=== PATIENT | female | born 1960 ===

== ENCOUNTER → 2021-11-14 10:12 | Outpatient (BNVA) | payer MEDICARE, MEDICAID, SELFPAY | PROVIDERS: PCP Internal Medicine; Referring Provider Internal Medicine; Visit Provider Physician Assistant | DX: Z12.11 Encounter for screening for malignant neoplasm of colon (principal) | CPT/HCPCS: 99202 ==

== ENCOUNTER 2021-12-22 10:17 | Outpatient (REF) | payer MEDICARE, MEDICAID, SELFPAY ==
--- NOTE | ~2021-12-22 | MM_ITS ---
EXAMINATION: MM SCREENING DIGITAL BREAST TOMOSYNTHESIS, BILATERAL CLINICAL INFORMATION: Screening. Asymptomatic. The lifetime risk of breast cancer based on the Tyrer-Cuzick Model is 4%. COMPARISON: Mammography: 12/06/2016, 04/30/2012 TECHNIQUE: Digital breast tomosynthesis is performed in both the craniocaudal and mediolateral oblique views along with computer-aided detection (CAD). Synthesized 2D images are generated from the tomosynthesis. FINDINGS: There are scattered areas of fibroglandular density (ACR BI-RADS breast composition Category b). There are no significant masses, abnormal calcifications, or other abnormalities. There is a chronic nodule posterior upper outer right breast with interval increased benign peripheral coarse calcifications consistent with degenerating fibroadenoma. There are no significant changes from prior studies. The axilla and skin contours are unremarkable. MM/MM tomosynthesis screening BI IMPRESSION: No mammographic evidence of malignancy. ASSESSMENT: BI-RADS 2: Benign RECOMMENDATION: Routine annual mammography screening. This patient's information was entered into a reminder system with a target due date for their next mammogram.
[2021-12-22 11:00] LABS: MANUAL DIFF FLAG NO
[2021-12-22 11:32] LABS: Basophils Percent Auto 0.4 % (0-2); Eosinophils Absolute Auto 0.1 X10*3/uL (0.0-0.4); Eosinophils Percent Auto 1.6 % (0-4); Hematocrit 40.7 % (37.0-47.0); Hemoglobin 13.6 g/dl (12.0-16.0); Imm Gran Abs Auto 0.02 X10*3/uL (0.00-0.03); Imm Gran Pct Auto 0.2 % (0.0-0.4); Lymphocytes Absolute Auto 3.7 X10*3/uL (1.2-4.9); Lymphocytes Percent Auto 44.9 % (20-40); Mean Corpuscular HGB Conc 33.4 g/dl (31.0-35.0); Mean Corpuscular Hemoglobin 29.6 pg (27.0-33.0); Mean Corpuscular Volume 88.7 fL (80.0-98.0); Mean Platelet Volume 9.9 fL (9.4-12.3); Monocytes Absolute Auto 0.7 X10*3/uL (0.1-1.2); Monocytes Percent Auto 8.5 % (2-11); Neutrophils Absolute Auto 3.7 x10*3/uL (2.0-8.3); Neutrophils Percent Auto 44.4 % (45-73); Platelet Count 261 X10*3/uL (160-400); Red Blood Count 4.59 X10*6/uL (4.20-5.50); Red Cell Distribution Width 14.4 % (11.0-16.0); White Blood Count 8.3 X10*3/uL (4.8-10.8)
[2021-12-22 12:08] LABS: Alanine Aminotransferase 33 U/L (0-31); Albumin Level 4.9 g/dL (3.5-5.0); Alkaline Phosphatase 73 U/L (39-117); Anion Gap 14 (12-20); Aspartate Amino Transferase 31 U/L (5-31); Bilirubin Total 0.7 mg/dL (0.0-1.0); Blood Urea Nitrogen 13 mg/dL (9-16); Calcium 9.9 mg/dL (8.4-10.2); Carbon Dioxide 24 mmol/L (22-29); Chloride 105 mmol/L (96-108); Cholesterol 260 mg/dL; Estimated Glomerular Filt Rate > 60; Glucose Random 111 mg/dL (60-115); HDL Cholesterol 42 mg/dL; LDL Cholesterol Calculated 177 mg/dl; Sodium 139 mmol/L (135-145); Total Protein 8.3 g/dL (6.5-8.0); Triglycerides 209 mg/dL
[2021-12-22 12:14] LABS: Estimated Average Glucose 117 mg/dL; Hemoglobin A1c % 5.7 %
[2021-12-22 12:31] LABS: Free T4 (Free Thyroxine) 0.96 ng/dL (0.71-1.85); Thyroid Stimulating Hormone 1.77 uIU/mL (0.32-4.0); Vitamin D 25-OH Total 13.5 ng/mL (>30)
[2021-12-24 10:27] LABS: Folate 16.5 ng/mL (> or = 4.0); Vitamin B12 440 pg/mL (200-900)
== END 2021-12-22 10:18 | disposition home or self-care (01) ==
LOC: HO.MAMMO 10:17
PROVIDERS: PCP Internal Medicine; Visit Provider Internal Medicine
DX: Z12.31 Encounter for screening mammogram for malignant neoplasm of breast (principal); E78.00 Pure hypercholesterolemia, unspecified
CPT/HCPCS: 36415; 77063; 77067; 80053; 80061; 82306; 82607; 82746; 83036; 84439; 84443; 85025

== ENCOUNTER 2022-04-08 12:57 | Day surgery (SDC) | payer MEDICARE, MEDICAID, SELFPAY ==
[2022-02-04 11:15] VITALS: BMI 31.6
--- NOTE | 2022-02-07 13:56 | HO.ANESPROP2 ---
HPI - Anesthesia Eval Consult details Narrative: 61yo F for Colonoscopy PMFSH Active Problems Active Problems: All Active Problems (Updated 12/25/21 @ 12:12 by Travis Ramos MD) Osteoarthritis (Acute) Annual physical exam (Acute) Cervical cancer screening (Acute) Breast cancer screening by mammogram (Acute) Hypercholesterolemia (Acute) Colon cancer screening (Acute) Impaired glucose tolerance (Acute) Obesity (BMI 30-39.9) (Acute) Ear pain (Acute) Hypertension (Acute) White coat syndrome with hypertension (Acute) Past Medical History Medical History Failed back syndrome Hypercholesterolemia Hypertension Impaired glucose tolerance Obesity (BMI 30-39.9) Varicose veins of both lower extremities Family History Family History Father Pancreatic cancer Diabetes Mother Diabetes CAD (coronary artery disease) Borderline high blood pressure Surgical History Surgical History History of arthroscopy of left shoulder History of lumbar laminectomy Social History Social History (Updated 12/25/21 @ 11:41 by Travis Ramos MD) Housing: Apartment Alcohol intake: current Patient Tobacco Use Status: Former Tobacco user Tobacco use type: Cigarette Years Smoked: quit 1994 e-Cigarette/Vaping Use: Never Used Second Hand Smoke Exposure: No Current occupational status: unemployed Cognitive needs: No Hearing needs: No Vision needs: No Meds Allergies Allergy/AdvReac Type Severity Reaction Status Date / Time lisinopril Allergy Intermediate cough Verified 12/25/21 11:11 Exam Exam Date and Time: February 07, 2022 1356 Height,Weight and Vital Signs: Height 5 ft 5 in Weight 86.183 kg Pertinent Lab Results Pertinent Lab Results: Laboratory Tests 12/22/21 12/22/21 10:59 10:59 WBC 8.3 Hgb 13.6 Hct 40.7 Plt Count 261 Sodium 139 Potassium 4.0 Chloride 105 Carbon Dioxide 24 BUN 13 Creatinine 0.72 Assessment and Plan Assessment Anesthesia Assessment: Chart Reviewed
[2022-04-02 10:25] VITALS: BMI 30.7
--- NOTE | 2022-04-05 09:10 | P.CONAN_ITS ---
Documented by User: Cherie Gleason NP 04/05/22 09:10 HPI - Anesthesia Eval Consult details Narrative: 61yo F for Colonoscopy PMFSH Active Problems Active Problems: All Active Problems (Updated 12/25/21 @ 12:12 by Travis Ramos MD) Osteoarthritis (Acute) Annual physical exam (Acute) Cervical cancer screening (Acute) Breast cancer screening by mammogram (Acute) Hypercholesterolemia (Acute) Colon cancer screening (Acute) Impaired glucose tolerance (Acute) Obesity (BMI 30-39.9) (Acute) Ear pain (Acute) Hypertension (Acute) White coat syndrome with hypertension (Acute) Past Medical History Medical History Failed back syndrome Hypercholesterolemia Hypertension Impaired glucose tolerance Obesity (BMI 30-39.9) Varicose veins of both lower extremities Family History Family History Father Pancreatic cancer Diabetes Mother Diabetes CAD (coronary artery disease) Borderline high blood pressure Surgical History Surgical History History of arthroscopy of left shoulder History of lumbar laminectomy Social History Social History (Updated 12/25/21 @ 11:41 by Travis Ramos MD) Housing: Apartment Alcohol intake: current Alcohol intake frequency: holidays/special occasions only Patient Tobacco Use Status: Former Tobacco user Tobacco use type: Cigarette Years Smoked: quit 1994 e-Cigarette/Vaping Use: Never Used Second Hand Smoke Exposure: No Use of substances other than those prescribed or required for medical reasons: No Are you DNR?: No Advance Directives: No Advance Directives Information Provided: Yes Advance Directives on File: No Current occupational status: unemployed Cognitive needs: No Hearing needs: No Vision needs: No Meds Allergies Allergy/AdvReac Type Severity Reaction Status Date / Time lisinopril Allergy Intermediate cough Verified 12/25/21 11:11 Exam Exam Date and Time: April 05, 2022 0910 Height,Weight and Vital Signs: Height 5 ft 5 in Weight 83.915 kg Pertinent Lab Results Pertinent Lab Results: Laboratory Tests 12/22/21 12/22/21 10:59 10:59 WBC 8.3 Hgb 13.6 Hct 40.7 Plt Count 261 Sodium 139 Potassium 4.0 Chloride 105 Carbon Dioxide 24 BUN 13 Creatinine 0.72 Assessment and Plan Assessment Anesthesia Assessment: Chart Reviewed Documented by User: Rosmery Bonilla MD 04/08/22 13:56 [facility] Past Medical History Medical History Failed back syndrome Hypercholesterolemia Hypertension Impaired glucose tolerance Obesity (BMI 30-39.9) Varicose veins of both lower extremities Family History Family History Father Pancreatic cancer Diabetes Mother Diabetes CAD (coronary artery disease) Borderline high blood pressure Family history of problems with anesthesia: No Surgical History Surgical History History of arthroscopy of left shoulder History of lumbar laminectomy History of Problems with Anesthesia: No Social History Social History (Updated 12/25/21 @ 11:41 by Travis Ramos MD) Housing: Apartment Alcohol intake: current Alcohol intake frequency: holidays/special occasions only Patient Tobacco Use Status: Former Tobacco user Tobacco use type: Cigarette Years Smoked: quit 1994 e-Cigarette/Vaping Use: Never Used Second Hand Smoke Exposure: No Use of substances other than those prescribed or required for medical reasons: No Are you DNR?: No Advance Directives: No Advance Directives Information Provided: Yes Advance Directives on File: No Current occupational status: unemployed Cognitive needs: No Hearing needs: No Vision needs: No Meds Allergies Allergy/AdvReac Type Severity Reaction Status Date / Time lisinopril Allergy Intermediate cough Verified 12/25/21 11:11 Exam Airway Mallampati Class: II TM Dist: >3cm Neck ROM: Full Partial: Upper Heart: rrr Lungs: cta Assessment and Plan Assessment Anesthesia Assessment: Anesthesia Plan Discussed and Chart Reviewed Final Anesthetic Review Family History of Problems with Anesthesia: No History of Problems with Anesthesia: No NPO: Yes ASA Class: II Final Preanesthetic Review: No Changes in Pt Med Stat, Meds/Allgs Chart Reviewed and Consent Obtained/Reviewed Patient Risk: Intermediate Procedure Risk: Intermediate Anesthetic Plan Anesthetic Plan: MAC: Disposition: Standard PACU
[2022-04-08 13:16] VITALS: BP 169/84; PULSE 94; RESP 16; TEMP 36.6; O2SAT 99
--- NOTE | 2022-04-08 13:52 | MHC.SHP ---
Pre-Procedural Eval Section A Date of Service: 04/08/22 The patient is an INPATIENT: No The History & Physical has been completed within 30 days and I have reviewed it.: No Section B Chief Complaint: screening Details of Present Illness: Colon cancer screening Relevant Family History (Specify if Yes): Yes Relevant Social History: Tobacco Use (Former smoker) Present Medications: see Short Stay Collaborative assessment Medical History: Significant History (Failed back syndrome Hypercholesterolemia Hypertension Impaired glucose tolerance Obesity (BMI 30-39.9) Varicose veins of both lower extremities) History of Previous Operations: Relevant previous surgery/procedure and date(s) (History of arthroscopy of left shoulder History of lumbar laminectomy) Allergies: Allergies Allergy/AdvReac Type Severity Reaction Status Date / Time lisinopril Allergy Intermediate cough Verified 12/25/21 11:11 Review of Systems Sugical H&P ROS: Negative: Constitution, Cardiovascular, Respiratory and Gastrointestinal Exam Surgical H&P Exam: Normal: Heart, Normal: Lungs, Normal: Extremities and Normal: Abdomen Plan Diagnosis/Plan: Unchanged I have reviewed the history and physical and performed a pertinent physical examination on my patient. No changes have occurred unless specified.
--- NOTE | 2022-04-08 13:59 | P.OP_ITS ---
Operative Note Operative Note Date of Service: 04/08/22 Narrative: Pre-op diagnosis: Colon cancer screening Post-op diagnosis:?other (Colon polyp, diverticulosis, hemorrhoids, prominent ileocecal valve) Procedure: COLONOSCOPY TILL CECUM WITH BIOPSIES Consent: Indications for the procedure and potential complications of bleeding, perforation, reaction to medications and missed diagnosis were discussed with the patient and informed consent was obtained. Instrument: Olympus PCF H 190 L variable stiffness pediatric colonoscope Monitoring: Vital signs and clinical assessment, intermittent blood pressure monitoring, continuous EKG monitoring, Pulse oximetry and Carbon Dioxide monitoring were done throughout the procedure. Colon withdrawl time was 19 minutes. Procedure: The patient was placed in the left lateral decubitis position and pre-procedure medications were administered. After a digital rectal examination of the ano-rectum, the video colonoscope was inserted into the rectum and advanced through the colon to the cecum. The colonoscope was slowly withdrawn in a retrograde panoramic fashion and the colon mucosa was carefully examined including a retroflexed view of the rectum. Findings and interventions are described below. Procedure Difficulty: Without difficulty Findings: Terminal Ileum: Not evaluated Cecum:? Prominent ICV? with ? adenomatous tissue along the proximal lip - biopsied Ascending Colon:? Normal Transverse Colon:? Normal Descending Colon:? Moderate diverticulosis Sigmoid Colon:? A 3-4 mm diminutive appearing polyp removed with a cold bx. Moderate diverticulosis Rectum:? Prominent rectal veins Ano-rectum:? Moderate internal hemorrhoids Colon preparation:? Good? Impression and Post Procedure Diagnosis: Colonoscopy Findings: One diminutive appearing polyp removed Prominent ICV? with ? adenomatous tissue along the proximal lip - biopsied Moderate diverticulosis seen in the left colon Moderate hemorrhoids on retroflexed exam. Plan: Await pathology results Patient has an appointment on 04/22/22 in the GI Clinic with JUAN MANUEL Raymond. Repeat Colonoscopy interval based on path results - if ICV biopsy reveals adenomatous tissue, repeat colonoscopy in [address] Albright for hybrid APC. and 10 years if polyps are hyperplastic. Above findings were reviewed with the patient and colon polyps and diverticulosis handouts were given in the discharge area Surgeon: Jaylin Casper MD Anesthesia:?MAC (Dr Andino) Was an Gatekeeper used for this Procedure?:?Yes Gatekeeper:?Earlene Lazar Estimated blood loss (mL):?0 Pathology:?other (A. ileocecal valve bxs, R/O adenoma? B. sigmoid polyp) Condition:?stable Disposition:?PACU
[2022-04-08 14:37] VITALS: BP 115/72; PULSE 73; RESP 16; TEMP 36.1; O2SAT 97
[2022-04-08 14:52] VITALS: BP 134/76; PULSE 69; RESP 18; TEMP 36.1; O2SAT 98
== END 2022-04-08 15:20 | disposition home or self-care (01) ==
PROVIDERS: PCP Internal Medicine; Visit Provider Internal Medicine Gastroenterology
PROC: 0DJD8ZZ Inspection of Lower Intestinal Tract, Via Natural or Artificial Opening Endoscopic (ICD-10-PCS; CPT 45378; principal; 2022-04-08 12:40)
DX: Z12.11 Encounter for screening for malignant neoplasm of colon (principal); K63.5 Polyp of colon; K57.30 Diverticulosis of large intestine without perforation or abscess without bleeding; K64.8 Other hemorrhoids; K63.89 Other specified diseases of intestine; I10 Essential (primary) hypertension; I83.93 Asymptomatic varicose veins of bilateral lower extremities; E78.00 Pure hypercholesterolemia, unspecified; M96.1 Postlaminectomy syndrome, not elsewhere classified; R73.02 Impaired glucose tolerance (oral); E66.9 Obesity, unspecified; Z68.31 Body mass index [BMI] 31.0-31.9, adult; Z79.899 Other long term (current) drug therapy; Z88.8 Allergy status to other drugs, medicaments and biological substances; Z87.891 Personal history of nicotine dependence
CPT/HCPCS: 45380; 88305

== ENCOUNTER → 2022-04-22 14:20 | Outpatient (BNVA) | payer MEDICARE, MEDICAID, SELFPAY | PROVIDERS: PCP Internal Medicine; Visit Provider Physician Assistant | DX: K63.5 Polyp of colon (principal) | CPT/HCPCS: Q3014 ==

== ENCOUNTER 2023-08-08 16:13 | Outpatient (AMB) | payer MEDICARE, MEDICAID, SELFPAY ==
[2023-08-08 16:16] VITALS: BP 142/82; PULSE 81; O2SAT 98; BMI 31.9
--- NOTE | 2023-08-08 16:16 | AM.OFFVISMDC ---
Intake Vital Signs 08/08/23 16:16 Height 5 ft 5 in Weight 192 lb BMI 31.9 BP 142/82 H Blood Pressure Location Lt brachial Position Sitting Pulse 81 Pulse Source Pulse Oximeter Pulse Oximetry (%) 98 Oxygen Delivery Method Room Air Intake Visit Reasons: AWV Senior Sales Assistant Required: No Octave Board Assembler: Octave Board Assembler Present Accompanied by: Daughter Allergies lisinopril Allergy (Intermediate, Verified 08/08/23 16:19) cough Medication List - Last Reconciled 08/08/23 by Travis Ramos MD amlodipine 5 mg PO DAILY 90 days blood pressure monitor As directed diclofenac sodium 1% (Voltaren Arthritis Pain) 4 grams topical QID HPI AWV HPI Details 63-year-old obese female with hypertension hypercholesterolemia impaired glucose tolerance last seen last year for physical in December 2021. Patient is here for physical exam. Mammogram is due colonoscopy is up-to-date. Review of the notes received from gynecology having myoma this was in June 2016 patient also seen the a Orthopedics in October 2022 for right shoulder calcific tendinitis and right shoulder glenohumeral joint arthritis conservative management and had injections patient also had colonoscopy done in March [address] Casper hyperplastic polyp.. PAtient has seen ortho and was told MRI spine showed arthritis spine. [facility] Medical History (Updated 08/08/23 @ 17:33 by Travis Ramos MD) Colon cancer screening Obesity (BMI 30-39.9) Varicose veins of both lower extremities Hypercholesterolemia Impaired glucose tolerance Failed back syndrome Hypertension Surgical History Hx of colonoscopy History of arthroscopy of left shoulder History of lumbar laminectomy Family History (Updated 08/08/23 @ 17:06 by Travis Ramos MD) Father Pancreatic cancer Diabetes Mother Diabetes CAD (coronary artery disease) Borderline high blood pressure Daughter Thyroid cancer Sister CVA (cerebral vascular accident) Social History (Updated 08/08/23 @ 17:07 by Travis Ramos MD) Housing: Apartment Alcohol intake: current Alcohol intake frequency: holidays/special occasions only Comment: once a week 3-4 beers Patient Tobacco Use Status: Former Tobacco user Tobacco use type: Cigarette Years Smoked: quit 1994 e-Cigarette/Vaping Use: Never Used Second Hand Smoke Exposure: No Current occupational status: unemployed Cognitive needs: No Hearing needs: No Vision needs: No Questionnaire Medicare Wellness Checkup [age] What gender do you identify with?: female During the past 4 weeks, how much have you been bothered by emotional problems such as feeling anxious, depressed, irritable, sad or downhearted, and blue?: quite a bit During the past 4 weeks, has your physical & emotional health limited your social activities with family, friends, neighbors, or groups?: moderately During the past 4 weeks, how much bodily pain have you generally had?: moderate pain During the past 4 weeks, was someone available to help you if you needed & wanted help?: yes, quite a bit During the past 4 weeks, what was the hardest physical activity you could do for at least 2 minutes?: moderate Can you get to places out of walking distance without help? (For eg., can you travel alone on buses, taxis or drive your car?): No Can you go shopping for groceries or clothes without someone's help?: No Can you prepare your own meals?: Yes Can you do your housework without help?: No Because of any health problems, do you need the help of another person with your personal care needs such as eating, bathing, dressing or getting around the house?: No Can you handle your own money without help?: Yes During the past 4 weeks, how would you rate your health in general?: fair During the past 4 weeks how have things been going for you?: good & bad parts about equal Are you having difficulties driving your car?: not applicable, I don't use a car Do you always fasten your seat belt when you are in a car?: yes, usually During past 4 weeks, have you been bothered by the following: never: Falling or dizzy when standing up, Sexual problems?, Trouble eating well?, Teeth or denture problems? and Problems using the telephone? and sometimes: Tiredness or fatigue? Have you fallen 2 or more times in the past year?: No Are you afraid of falling?: No Are you a smoker?: no During the past 4 weeks, how many drinks of wine, beer, or other alcoholic beverages did you have?: 1 drink or less per week Do you exercise for about 20 minutes 3 or more times a week?: no, I usually do not exercise this much Have you been given information to help with the following?: yes: Hazards in your house that might hurt you? and yes: Keeping track of your medications? How often do you have trouble taking medicines the way you have been told to take them?: I always take medicine as prescribed How confident are you that you can control & manage most of your health problems?: very confident What is your race?: or origin or descent PHQ-9 Over the last 2 weeks, how often have you been bothered by any of the following problems? 1. Little interest or pleasure in doing things: several days 2. Feeling down, depressed, or hopeless: more than half the days 3. Trouble falling or staying asleep, or sleeping too much: more than half the days 4. Feeling tired or having little energy: more than half the days 5. Poor appetite or overeating: not at all 6. Feeling bad about yourself - or that you are a failure or have let yourself or your family down: not at all 7. Trouble concentrating on things, such as reading the newspaper or watching television: not at all 8. Moving or speaking so slowly that other people could have noticed. Or the opposite - being so fidgety or restless that you have been moving around a lot more than usual: not at all 9. Thoughts that you would be better off or of hurting yourself in some way: not at all Total score: 7 Depression Screening Interpretation: Positive Depression Screening Done: Yes 11189 - PHQ-9 Billing: Yes Source: Developed by Drs. Michael Larson, Cheri Montaño, Rojelio Camacho and colleagues, with an educational aj from [employer]. Review of Systems Const Denies poor appetite and Denies weakness Eyes Denies no additional complaints ENT Reports Normal hearing present, Denies dizziness, Denies nasal congestion, Denies tinnitus and Denies sore throat Card Denies chest pain, Denies syncope, Denies rapid heart rate and Denies dyspnea Resp Denies cough and Denies dyspnea GI Denies change in stool character, Reports constipation, Denies diarrhea, Denies nausea and Denies vomiting Denies urinary frequency, Denies difficulty voiding and Denies dysuria Neuro Reports Normal hearing present, Denies confusion, Denies dizziness, Denies syncope and Denies weakness Psych Denies confusion Physical Exam Vital Signs: Last Vital Signs Pulse 81 08/08/23 16:16 BP 142/82 H 08/08/23 16:16 Pulse Ox 98 08/08/23 16:16 Oxygen Delivery Method Room Air 08/08/23 16:16 BMI result Body Mass Index 31.9 Const General: No confusion Orientation/consciousness: No confusion HEENT Head: Yes normocephalic Ears: external ears normal and TM's normal bilaterally Face and sinus: Yes normal facial exam Mouth: moist mucous membranes Throat: Yes tonsils normal Eyes Conjunctivae: conjunctivae normal Pupils: Equal, round and reactive pupils present and Pupil accommodation reflex normal Direct Ophthalmoscopy: normal light reflex Neck Neck: No lymphadenopathy Thyroid: Thyroid normal Chest Chest palpation & inspection: normal inspection of the chest Resp Effort & Inspection: normal respiratory effort and no audible wheezes Auscultation: clear to auscultation bilaterally, no crackles, no wheezes and lung sounds not diminished Cardio Rate: regular rate Rhythm: regular rhythm Peripheral pulses: radial pulses present and dorsalis pedis present GI Palpation (GI): no masses Auscultation: normal bowel sounds and normoactive bowel sounds Rectal Exam - Female: deferred Skin General skin exam: no rashes or lesions noted Rashes: no rashes Neuro General: No confusion Cranial nerves: Yes Equal, round and reactive pupils present and Yes Normal hearing present Cognition (Neuro): normal cognition Gait exam (Neuro): Normal gait present Motor exam (neuro): 5/5 motor strength present throughout Deep tendon reflexes (DTR's): Right brachioradialis reflex intensity grade: 2+, Left brachioradialis reflex intensity grade: 2+, Right patellar reflex intensity grade: 2+ and Left patellar reflex intensity grade: 2+ Extrem General: No edema Assessment & Plan Assessment & Plan (1) Medicare annual wellness visit, subsequent: Code(s): Z00.00 - Encounter for general adult medical examination without abnormal findings Plan: Discussion about the medical problems. (2) Hypertension: Code(s): I10 - Essential (primary) hypertension Qualifiers: Hypertension type: essential hypertension Qualified Code(s): I10 - Essential (primary) hypertension Plan: Continue with blood pressure medication. Decrease salt intake and exercise patient takes amlodipine 10 mg once a day (3) Obesity (BMI 30-39.9): Code(s): E66.9 - Obesity, unspecified Plan: Diet and exercise (4) Impaired glucose tolerance: Code(s): R73.02 - Impaired glucose tolerance (oral) Plan: Decrease the amount of carbohydrate intake, pasta, bread, rice and potatoes are all sugar and that is aside from all the sweet stuff, remember that fruits are good but they are Sweet also. (5) Hypercholesterolemia: Code(s): E78.00 - Pure hypercholesterolemia, unspecified Plan: Avoid fried foods, chicken skin, eggs, butter margarine, pastries and meat. Be it pork or beef they have a lot of cholesterol LDL goal of less than 130 and triglyceride of less than 150 will need a repeat blood work (6) Breast cancer screening by mammogram: Code(s): Z12.31 - Encounter for screening mammogram for malignant neoplasm of breast Plan: Reminded about mammogram (7) Cervical cancer screening: Code(s): Z12.4 - Encounter for screening for malignant neoplasm of cervix Plan: Reminded about Pap smears cervical cancer screening (8) Osteoarthritis: Comment: Left knee and right shoulder Code(s): M19.90 - Unspecified osteoarthritis, unspecified site Qualifiers: Osteoarthritis location: multiple joints Osteoarthritis type: primary Qualified Code(s): M15.9 - Polyosteoarthritis, unspecified Plan: Patient did see Orthopedics and had injections of the right shoulder. And left knee. (9) Dysphagia: Code(s): R13.10 - Dysphagia, unspecified Qualifiers: Dysphagia type: oropharyngeal phase Qualified Code(s): R13.12 - Dysphagia, oropharyngeal phase Plan: Upper GI series with barium swallow requested (10) Post-menopausal bleeding: Code(s): N95.0 - Postmenopausal bleeding Plan: Patient will be referred to gynecology (11) Impaired fasting blood sugar: Code(s): R73.01 - Impaired fasting glucose Plan: Decrease the amount of carbohydrate intake, pasta, bread, rice and potatoes are all sugar and that is aside from all the sweet stuff, remember that fruits are good but they are Sweet also. (12) Generalized anxiety disorder: Code(s): F41.1 - Generalized anxiety disorder Plan: Discussion about treatment and counseling and would like to hold off. Patient wants to try decreasing the amlodipine blood pressure medication 1st. Orders: Orders Complete Blood Count Auto Diff Today R73.01 - Impaired fasting glucose Lipid Panel Today E78.00 - Pure hypercholesterolemia, unspecified, R73.01 - Impaired fasting glucose Free T4 (Free Thyroxine) Today R73.01 - Impaired fasting glucose Vitamin B12 and Folate Today R73.01 - Impaired fasting glucose FL upper GI w Ba Swallow Today R13.10 - Dysphagia, unspecified Comprehensive Met. Panel Today R73.01 - Impaired fasting glucose Hemoglobin A1c Today R73.01 - Impaired fasting glucose Thyroid Stimulating Hormone Today R73.01 - Impaired fasting glucose MM tomosynthesis screening BI Today Z12.31 - Encounter for screening mammogram for malignant neoplasm of breast Referrals TRAVELING STOREKEEPER Referral N95.0 - Postmenopausal bleeding Medications: Changed From amlodipine 10 mg PO DAILY 90 days 90 tabs 3RF I10 - Essential (primary) hypertension To amlodipine 5 mg PO DAILY 90 days 90 tabs 3RF I10 - Essential (primary) hypertension Refilled diclofenac sodium 1% (Voltaren Arthritis Pain) apply to single knee, ankle, foot; for foot includes sole/toes/top of foot 4 grams topical QID 100 grams 3RF M19.90 - Unspecified osteoarthritis, unspecified site Quality Reporting (2019) Depression/Bipolar (159/160/161/177) PHQ-9: Total score: 7 Coding Level of Care Code Medicare Subsequent (G0439) Diagnoses Medicare annual wellness visit, subsequent Z00.00 Essential hypertension I10 Hypertension type: essential hypertension Obesity (BMI 30-39.9) E66.9 Impaired glucose tolerance R73.02 Hypercholesterolemia E78.00 Breast cancer screening by mammogram Z12.31 Cervical cancer screening Z12.4 Primary osteoarthritis involving multiple joints M15.9 Osteoarthritis location: multiple joints Osteoarthritis type: primary Oropharyngeal dysphagia R13.12 Dysphagia type: oropharyngeal phase Post-menopausal bleeding N95.0 Impaired fasting blood sugar R73.01 Generalized anxiety disorder F41.1
== END 2023-08-08 17:33 | disposition home or self-care (01) ==
PROVIDERS: PCP Internal Medicine; Visit Provider Internal Medicine
DX: Z00.00 Encounter for general adult medical examination without abnormal findings (principal); I10 Essential (primary) hypertension; E66.9 Obesity, unspecified; Z68.31 Body mass index [BMI] 31.0-31.9, adult; R73.02 Impaired glucose tolerance (oral); E78.00 Pure hypercholesterolemia, unspecified; Z12.31 Encounter for screening mammogram for malignant neoplasm of breast; M15.9 Polyosteoarthritis, unspecified; R13.12 Dysphagia, oropharyngeal phase; N95.0 Postmenopausal bleeding; R73.01 Impaired fasting glucose; F41.1 Generalized anxiety disorder
CPT/HCPCS: G0439

== ENCOUNTER 2023-09-20 10:26 | Outpatient (REF) | payer MEDICARE, MEDICAID, SELFPAY ==
--- NOTE | ~2023-09-20 | MM_ITS ---
EXAMINATION: MM SCREENING DIGITAL BREAST TOMOSYNTHESIS, BILATERAL CLINICAL INFORMATION: Screening. Asymptomatic. COMPARISON: Mammography: This study is compared with prior exams dating back to 2017. TECHNIQUE: Digital breast tomosynthesis is performed in both the craniocaudal and mediolateral oblique views along with computer-aided detection (CAD). Synthesized 2D images are generated from the tomosynthesis. FINDINGS: There are scattered areas of fibroglandular density (ACR BI-RADS breast composition Category b). There are no significant masses, abnormal calcifications, or other abnormalities. There is an unchanged, coarse, benign calcification in the upper outer quadrant of the right breast. MM/MM tomosynthesis screening BI IMPRESSION: No mammographic evidence of malignancy. ASSESSMENT: BI-RADS BI-RADS 2 - Benign Findings RECOMMENDATION: Routine annual mammography screening. 1 year F/U This examination should not preclude the clinical evaluation of a suspicious palpable abnormality. This patient's information was entered into a reminder system with a target due date for their next mammogram.
== END 2023-09-20 10:27 | disposition home or self-care (01) ==
LOC: HO.MAMMO 10:26
PROVIDERS: PCP Internal Medicine; Visit Provider Internal Medicine
DX: Z12.31 Encounter for screening mammogram for malignant neoplasm of breast (principal)
CPT/HCPCS: 77063; 77067

== ENCOUNTER → 2023-09-20 10:45 | Outpatient (BNV) | payer MEDICARE, MEDICAID, SELFPAY | PROVIDERS: PCP Internal Medicine; Visit Provider Radiology Diagnostic Radiology | DX: Z12.31 Encounter for screening mammogram for malignant neoplasm of breast (principal) | CPT/HCPCS: 77063; 77067 ==

== ENCOUNTER 2023-11-08 09:45 | Outpatient (REF) | payer MEDICARE, MEDICAID, SELFPAY ==
[2023-11-08 10:40] LABS: Basophils Absolute Auto 0.1 X10*3/uL (0.0-0.2); Basophils Percent Auto 0.4 % (0-2); Eosinophils Absolute Auto 0.2 X10*3/uL (0.0-0.4); Eosinophils Percent Auto 1.3 % (0-4); Hematocrit 43.4 % (37.0-47.0); Hemoglobin 14.3 g/dl (12.0-16.0); Imm Gran Abs Auto 0.06 X10*3/uL (0.00-0.03); Imm Gran Pct Auto 0.5 % (0.0-0.4); Lymphocytes Absolute Auto 5.4 X10*3/uL (1.2-4.9); Lymphocytes Percent Auto 44.7 % (20-40); MANUAL DIFF FLAG SCAN; Mean Corpuscular HGB Conc 32.9 g/dl (31.0-35.0); Mean Corpuscular Hemoglobin 29.4 pg (27.0-33.0); Mean Corpuscular Volume 89.3 fL (80.0-98.0); Mean Platelet Volume 9.5 fL (9.4-12.3); Monocytes Absolute Auto 0.9 X10*3/uL (0.1-1.2); Monocytes Percent Auto 7.6 % (2-11); Neutrophils Absolute Auto 5.5 x10*3/uL (2.0-8.3); Neutrophils Percent Auto 45.5 % (45-73); Platelet Count 298 X10*3/uL (160-400); Red Blood Count 4.86 X10*6/uL (4.20-5.50); Red Cell Distribution Width 14.6 % (11.0-16.0); SCAN SMEAR FLAG 1; White Blood Count 12.1 X10*3/uL (4.8-10.8)
[2023-11-08 10:50] LABS: Estimated Average Glucose 114 mg/dL; Hemoglobin A1c % 5.6 % (<6.0)
[2023-11-08 11:01] LABS: Alanine Aminotransferase 27 U/L (0-31); Albumin Level 4.7 g/dL (3.5-5.0); Alkaline Phosphatase 83 U/L (39-117); Anion Gap 12 (12-20); Aspartate Amino Transferase 28 U/L (5-31); Bilirubin Total 0.4 mg/dL (0.0-1.0); Blood Urea Nitrogen 9 mg/dL (9-16); Calcium 9.8 mg/dL (8.4-10.2); Carbon Dioxide 28 mmol/L (22-29); Chloride 105 mmol/L (96-108); Cholesterol 274 mg/dL (<200); Estimated Glomerular Filt Rate > 60; Glucose Random 111 mg/dL (60-115); HDL Cholesterol 38 mg/dL (>40); Potassium 3.9 mmol/L (3.3-5.1); Sodium 141 mmol/L (135-145); Total Protein 8.5 g/dL (6.5-8.0); Triglycerides 453 mg/dL (<150)
[2023-11-08 11:03] LABS: SLIDE REVIEW VERIFIED
[2023-11-08 11:19] LABS: Free T4 (Free Thyroxine) 0.93 ng/dL (0.71-1.85); Thyroid Stimulating Hormone 2.96 uIU/mL (0.32-4.0); Vitamin D 25-OH Total 16.8 ng/mL (>30)
[2023-11-08 11:26] LABS: Folate 12.4 ng/mL (> or = 4.0); Vitamin B12 446 pg/mL (200-900)
== END 2023-11-08 09:46 | disposition home or self-care (01) ==
LOC: HO.LAB 09:45
PROVIDERS: PCP Internal Medicine; Visit Provider Internal Medicine
DX: R73.01 Impaired fasting glucose (principal); E78.00 Pure hypercholesterolemia, unspecified
CPT/HCPCS: 36415; 80053; 80061; 82306; 82607; 82746; 83036; 84439; 84443; 85025

== ENCOUNTER 2023-11-14 15:57 | Outpatient (AMB) | payer MEDICARE, MEDICAID, SELFPAY ==
--- NOTE | 2023-11-14 16:00 | MHC.PC.OV ---
Vital Signs 11/14/23 16:02 Height 5 ft 5 in Weight 191 lb 4 oz BMI 31.8 BP 140/88 H Blood Pressure Location Lt brachial Position Sitting Pulse 81 Pulse Source Pulse Oximeter Pulse Oximetry (%) 98 Oxygen Delivery Method Room Air Intake Visit Reasons: IGT, Cholesterol Intake Note: Patient is here to follow up on IGT, Cholesterol. Spray Unit Feeder Required: Yes Spray Unit Feeder Language: Vacuum Metalizer Operator Name: Haleigh (daughter) Information Interpreted: non-clinical & clinical Lead Designer: Present Accompanied by: Daughter Allergies lisinopril Allergy (Intermediate, Verified 11/14/23 16:02) cough Tobacco use date assessed: 11/14/23 Fall risk assessment: No Falls in past year Last assessed Fall Risk: 11/14/23 Dental Screening Dental Screen Date: 11/14/23 Did you have a dental visit in the last 12 months?: No Did you have a dental problem in the last 6 months where you did not have access to dental care?: No Was dental information given to patient?: No HPI IGT, Cholesterol HPI Details 63-year-old obese female with hypertension impaired glucose tolerance hypercholesterolemia dysphagia osteoarthritis postmenopausal bleeding impaired glucose tolerance and generalized anxiety disorder last seen in July 2023 mammogram is up-to-date colonoscopy is up-to-date. Patient has seen Orthopedics in June for post laminectomy syndrome few and from the fusion. On the lower back. Patient continues to have pain on the lower back and is asking for referral for pain management. [facility] Medical History (Updated 11/14/23 @ 16:40 by Travis Ramos MD) Colon cancer screening Obesity (BMI 30-39.9) Varicose veins of both lower extremities Hypercholesterolemia Impaired glucose tolerance Failed back syndrome Hypertension Surgical History Hx of colonoscopy History of arthroscopy of left shoulder History of lumbar laminectomy Family History (Updated 11/14/23 @ 16:00 by JÚNIOR Escobar) Father Pancreatic cancer Diabetes Mother Diabetes CAD (coronary artery disease) Borderline high blood pressure Daughter Thyroid cancer Sister CVA (cerebral vascular accident) Social History (Updated 11/14/23 @ 16:07 by JÚNIOR Escobar) Housing: Apartment Alcohol intake: current Alcohol intake frequency: holidays/special occasions only Comment: once a week 3-4 beers Patient Tobacco Use Status: Former Tobacco user Tobacco use type: Cigarette Years Smoked: quit 1994 e-Cigarette/Vaping Use: Never Used Second Hand Smoke Exposure: No service: No Current occupational status: unemployed Cognitive needs: No Hearing needs: No Vision needs: No Questionnaire PHQ-9 Over the last 2 weeks, how often have you been bothered by any of the following problems? 1. Little interest or pleasure in doing things: several days 2. Feeling down, depressed, or hopeless: several days (due BP medication) 3. Trouble falling or staying asleep, or sleeping too much: nearly every day 4. Feeling tired or having little energy: several days 5. Poor appetite or overeating: not at all 6. Feeling bad about yourself - or that you are a failure or have let yourself or your family down: not at all 7. Trouble concentrating on things, such as reading the newspaper or watching television: not at all 8. Moving or speaking so slowly that other people could have noticed. Or the opposite - being so fidgety or restless that you have been moving around a lot more than usual: not at all 9. Thoughts that you would be better off or of hurting yourself in some way: not at all Total score: 6 Depression Screening Interpretation: Positive Depression Screening Done: Yes Source: Developed by Drs. Michael Larson, Cheri Montaño, Rojelio Camacho and colleagues, with an educational aj from [employer]. Thrive Questionnaire Date Thrive assessed: 11/14/23 I am a: Patient What is your living situation today?: I have a steady place to live Within the past 12 months, did the food you bought not last and you didn't have the money to get more?: Never true Within the past 12 months, did you worry whether your food would run out before you got money to buy more?: Never true Do you have trouble paying for medicines?: No Do you have trouble getting transportation to medical appointments?: No Do you have trouble paying your heating and electricity bill?: No Do you have trouble taking care of your child, family member or friend?: No Do you have trouble with day-to-day activities such as bathing, preparing meals, shopping, managing finances, etc.?: No Are you currently unemployed and looking for a job?: No Are you interested in more education?: No Currently or been in a relationship where the following occur: no concerns reported THRIVE Score: 0 AUDIT C Alcohol Use Questionnaire (AUDIT-C) 1. How often do you have a drink containing alcohol?: Monthly or less 2. How many drinks containing alcohol do you have on a typical day when you are drinking?: 1 or 2 Total Score: 1 CHANG-7 AMB Questionnaire CHANG-7 Date CHANG - 7 assessed: 11/14/23 Feeling nervous, anxious, or on edge: 0 = Not at all Not being able to stop or control worryin = Not at all Worrying too much about different things: 0 = Not at all Trouble relaxin = Not at all Being so restless that it is hard to sit still: 0 = Not at all Becoming easily annoyed or irritable: 0 = Not at all Feeling afraid as if something awful might happen: 0 = Not at all Total CHANG-7 score (0-4 normal; 5-9 mild; 10-14 moderate; 15-21 severe): 0 Source: Developed by Drs. Michael Larson, Cheri Montaño, Rojelio Camacho and colleagues, with an educational aj from [employer]. Physical exam (Primary Care) Vital Signs: Last Vital Signs Pulse 81 11/14/23 16:02 BP 140/88 H 11/14/23 16:02 Pulse Ox 98 11/14/23 16:02 Oxygen Delivery Method Room Air 11/14/23 16:02 BMI result Body Mass Index 31.8 Tobacco/Smoking Status: Tobacco use Status Tobacco use date assessed 11/14/23 11/14/23 16:10 Patient Tobacco Use Status Former Tobacco user 11/14/23 16:10 Tobacco use type Cigarette 11/14/23 16:10 e-Cigarette/Vaping Use Never Used 11/14/23 16:10 PHQ-9: PHQ-9 Score PHQ-9: Total score 6 11/14/23 16:31 Depression Screening Interpretation: Positive Thrive Assessment: Date of Thrive Assessment Date Thrive assessed 11/14/23 11/14/23 16:10 Currently or been in a relationship where the following occur: no concerns reported Const General: alert; No acute distress Eyes Conjunctivae: conjunctivae normal Resp Auscultation: clear to auscultation bilaterally Cardio Rate: regular rate Rhythm: regular rhythm GI Inspection: Yes normal to inspection Extrem General: Yes normal to inspection and No edema Assessment and Plan Assessment & Plan (1) Obesity (BMI 30-39.9): Code(s): E66.9 - Obesity, unspecified Plan: Diet and exercise (2) Hypertension: Code(s): I10 - Essential (primary) hypertension Qualifiers: Hypertension type: essential hypertension Qualified Code(s): I10 - Essential (primary) hypertension Plan: Continue with blood pressure medication. Decrease salt intake and exercise on amlodipine 5 mg once a day (3) Impaired glucose tolerance: Code(s): R73.02 - Impaired glucose tolerance (oral) Plan: Decrease the amount of carbohydrate intake, pasta, bread, rice and potatoes are all sugar and that is aside from all the sweet stuff, remember that fruits are good but they are Sweet also. (4) Hypercholesterolemia: Code(s): E78.00 - Pure hypercholesterolemia, unspecified Plan: Avoid fried foods, chicken skin, eggs, butter margarine, pastries and meat. Be it pork or beef they have a lot of cholesterol LDL goal of less than 130 and triglyceride of less than 150. And states that her diet is actually controlled. But with this high of a triglyceride will start on fenofibrate. Prescription sent. (5) Postlaminectomy syndrome: Code(s): M96.1 - Postlaminectomy syndrome, not elsewhere classified Plan: Patient is referred to pain management. Orders: Orders Lipid Panel 3 Months E78.00 - Pure hypercholesterolemia, unspecified Comprehensive Met. Panel 3 Months E78.00 - Pure hypercholesterolemia, unspecified Hemoglobin A1c 3 Months R73.01 - Impaired fasting glucose Referrals Pain Management Referral M96.1 - Postlaminectomy syndrome, not elsewhere classified Medications: New fenofibrate 160 mg PO DAILY 30 tabs 3RF E78.00 - Pure hypercholesterolemia, unspecified Refilled amlodipine 5 mg PO DAILY 90 days 90 tabs 3RF I10 - Essential (primary) hypertension Coding Level of Care Code Est Pt Level 4 (88928) Diagnoses Obesity (BMI 30-39.9) E66.9 Essential hypertension I10 Hypertension type: essential hypertension Impaired glucose tolerance R73.02 Hypercholesterolemia E78.00 Postlaminectomy syndrome M96.1
[2023-11-14 16:02] VITALS: BP 140/88; PULSE 81; O2SAT 98; BMI 31.8
== END 2023-11-14 16:46 | disposition home or self-care (01) ==
PROVIDERS: PCP Internal Medicine; Visit Provider Internal Medicine
DX: I10 Essential (primary) hypertension (principal); E66.9 Obesity, unspecified; Z68.31 Body mass index [BMI] 31.0-31.9, adult; R73.02 Impaired glucose tolerance (oral); E78.00 Pure hypercholesterolemia, unspecified; M96.1 Postlaminectomy syndrome, not elsewhere classified
CPT/HCPCS: 99214

== ENCOUNTER 2024-02-21 09:08 | Outpatient (REF) | payer MEDICARE, MEDICAID, SELFPAY ==
[2024-02-21 10:39] LABS: Estimated Average Glucose 120 mg/dL; Hemoglobin A1c % 5.8 % (<6.0)
[2024-02-21 11:01] LABS: Alanine Aminotransferase 40 U/L (0-31); Albumin Level 4.8 g/dL (3.5-5.0); Alkaline Phosphatase 82 U/L (39-117); Anion Gap 20 (12-20); Aspartate Amino Transferase 35 U/L (5-31); Bilirubin Total 0.4 mg/dL (0.0-1.0); Blood Urea Nitrogen 11 mg/dL (9-16); Calcium 9.6 mg/dL (8.4-10.2); Carbon Dioxide 28 mmol/L (22-29); Chloride 103 mmol/L (96-108); Cholesterol 254 mg/dL (<200); Estimated Glomerular Filt Rate > 60; Glucose Random 102 mg/dL (60-115); HDL Cholesterol 42 mg/dL (>40); LDL Cholesterol Calculated 155 mg/dL (<100); Potassium 4.5 mmol/L (3.3-5.1); Sodium 146 mmol/L (135-145); Total Protein 8.4 g/dL (6.5-8.0); Triglycerides 287 mg/dL (<150)
== END 2024-02-21 09:09 | disposition home or self-care (01) ==
LOC: HO.LAB 09:08
PROVIDERS: PCP Internal Medicine; Visit Provider Internal Medicine
DX: E78.00 Pure hypercholesterolemia, unspecified (principal); R73.01 Impaired fasting glucose
CPT/HCPCS: 36415; 80053; 80061; 83036

== ENCOUNTER 2024-03-11 15:55 | Outpatient (AMB) | payer MEDICARE, MEDICAID, SELFPAY ==
--- NOTE | 2024-03-11 16:23 | A.OFFPC_ITS ---
Vital Signs 03/11/24 16:24 Height 5 ft 5 in Weight 183 lb BMI 30.4 BP 160/90 H Blood Pressure Location Lt brachial Position Sitting Pulse 92 Pulse Source Pulse Oximeter Pulse Oximetry (%) 97 Oxygen Delivery Method Room Air Intake Visit Reasons: 3mth f/u Accompanied by: Daughter Allergies lisinopril Allergy (Intermediate, Verified 03/11/24 16:24) cough Tobacco use date assessed: 11/14/23 Fall risk assessment: No Falls in past year Last assessed Fall Risk: 03/11/24 Dental Screening Dental Screen Date: 11/14/23 HPI 3mth f/u HPI Details 63-year-old obese female (noted 8 lb wilson ght loss) with hypertension impaired glucose tolerance hypercholesterolemia coming in for follow-up. Patient has a post laminectomy syndrome and has been referred to pain management. Mammogram is up-to-date colonoscopy is up-to-date. I checked the BP 150/90 brought machine in 145/82. BP at home has been good. ASCVD 11.8% 10 years [facility] Medical History (Updated 03/11/24 @ 16:29 by Travis Ramos MD) Impaired fasting blood sugar Colon cancer screening Obesity (BMI 30-39.9) Varicose veins of both lower extremities Hypercholesterolemia Impaired glucose tolerance Failed back syndrome Hypertension Surgical History Hx of colonoscopy History of arthroscopy of left shoulder History of lumbar laminectomy Family History Father Pancreatic cancer Diabetes Mother Diabetes CAD (coronary artery disease) Borderline high blood pressure Daughter Thyroid cancer Sister CVA (cerebral vascular accident) Social History Housing: Apartment Alcohol intake: current Alcohol intake frequency: holidays/special occasions only Comment: once a week 3-4 beers Patient Tobacco Use Status: Former Tobacco user Tobacco use type: Cigarette Years Smoked: quit 1994 e-Cigarette/Vaping Use: Never Used Second Hand Smoke Exposure: No service: No Current occupational status: unemployed Cognitive needs: No Hearing needs: No Vision needs: No Questionnaire Thrive Questionnaire Date Thrive assessed: 11/14/23 CHANG-7 AMB Questionnaire CHANG-7 Date CHANG - 7 assessed: 11/14/23 Source: Developed by Drs. Michael Larson, Cheri Montaño, Rojelio Camacho and colleagues, with an educational aj from [employer]. Physical exam (Primary Care) Vital Signs: Last Vital Signs Pulse 92 03/11/24 16:24 BP 160/90 H 03/11/24 16:24 Pulse Ox 97 03/11/24 16:24 Oxygen Delivery Method Room Air 03/11/24 16:24 BMI result Body Mass Index 30.4 Tobacco/Smoking Status: Tobacco use Status Tobacco use date assessed 11/14/23 03/11/24 16:25 Patient Tobacco Use Status Former Tobacco user 03/11/24 16:25 Tobacco use type Cigarette 03/11/24 16:25 e-Cigarette/Vaping Use Never Used 03/11/24 16:25 Thrive Assessment: Date of Thrive Assessment Date Thrive assessed 11/14/23 03/11/24 16:25 Const General: alert; No acute distress Eyes Conjunctivae: conjunctivae normal Resp Auscultation: clear to auscultation bilaterally Cardio Rate: regular rate Rhythm: regular rhythm GI Inspection: Yes normal to inspection Extrem General: Yes normal to inspection and No edema Assessment and Plan Assessment & Plan (1) Obesity (BMI 30-39.9): Code(s): E66.9 - Obesity, unspecified Plan: Diet and exercise (2) Impaired glucose tolerance: Code(s): R73.02 - Impaired glucose tolerance (oral) Plan: Decrease the amount of carbohydrate intake, pasta, bread, rice and potatoes are all sugar and that is aside from all the sweet stuff, remember that fruits are good but they are Sweet also. (3) Hypercholesterolemia: Code(s): E78.00 - Pure hypercholesterolemia, unspecified Plan: Avoid fried foods, chicken skin, eggs, butter margarine, pastries and meat. Be it pork or beef they have a lot of cholesterol LDL goal of less than 130 and triglyceride of less than 150 patient has declined fenofibrate. Now that the triglyceride come down LDL noted to be elevated. ASCVD risk 11.8% in the next 10 years advised to treat LDL. Rosuvastatin 5 mg once a day sent in. Will need retesting in 3 months (4) Hypertension: Code(s): I10 - Essential (primary) hypertension Qualifiers: Hypertension type: essential hypertension Qualified Code(s): I10 - Essential (primary) hypertension Plan: Continue with blood pressure medication. Decrease salt intake and exercise takes amlodipine 5 mg once a day. Advised to continue monitoring the blood pressure. (5) Generalized anxiety disorder: Code(s): F41.1 - Generalized anxiety disorder Plan: Stable (6) LFT elevation: Code(s): R79.89 - Other specified abnormal findings of blood chemistry Plan: Advised ultrasound as well as retesting. Orders: Orders Comprehensive Met. Panel 3 Months E78.00 - Pure hypercholesterolemia, unspecified Lipid Panel 3 Months E78.00 - Pure hypercholesterolemia, unspecified Hemoglobin A1c 3 Months E78.00 - Pure hypercholesterolemia, unspecified Medications: New rosuvastatin 5 mg PO DAILY 30 tabs 3RF E78.00 - Pure hypercholesterolemia, unspecified Discontinued fenofibrate Discontinued Reason: Patient Refused 160 mg PO DAILY 30 tabs 3RF E78.00 - Pure hypercholesterolemia, unspecified Coding Level of Care Code Est Pt Level 4 (13883) Diagnoses Obesity (BMI 30-39.9) E66.9 Impaired glucose tolerance R73.02 Hypercholesterolemia E78.00 Essential hypertension I10 Hypertension type: essential hypertension Generalized anxiety disorder F41.1 LFT elevation R79.89
[2024-03-11 16:24] VITALS: BP 160/90; PULSE 92; O2SAT 97; BMI 30.4
== END 2024-03-11 16:56 | disposition home or self-care (01) ==
PROVIDERS: PCP Internal Medicine; Visit Provider Internal Medicine
DX: I10 Essential (primary) hypertension (principal); R73.02 Impaired glucose tolerance (oral); E78.00 Pure hypercholesterolemia, unspecified; F41.1 Generalized anxiety disorder; R79.89 Other specified abnormal findings of blood chemistry
CPT/HCPCS: 99214

== ENCOUNTER 2024-06-12 08:29 | Outpatient (REF) | payer MEDICARE, SELFPAY ==
[2024-06-12 09:24] LABS: Estimated Average Glucose 117 mg/dL; Hemoglobin A1c % 5.7 % (<6.0); Total Hemoglobin (HGBA1C) 3333.1773 umol/L
[2024-06-12 09:55] LABS: Alanine Aminotransferase 48 U/L (0-31); Albumin Level 4.8 g/dL (3.5-5.0); Alkaline Phosphatase 74 U/L (39-117); Anion Gap 12 (12-20); Aspartate Amino Transferase 35 U/L (5-31); Bilirubin Total 0.7 mg/dL (0.0-1.0); Blood Urea Nitrogen 14 mg/dL (9-16); Calcium 9.2 mg/dL (8.4-10.2); Carbon Dioxide 28 mmol/L (22-29); Chloride 104 mmol/L (96-108); Cholesterol 182 mg/dL (<200); Estimated Glomerular Filt Rate > 60; Glucose Random 103 mg/dL (60-115); HDL Cholesterol 43 mg/dL (>40); LDL Cholesterol Calculated 96 mg/dL (<100); Potassium 4.1 mmol/L (3.3-5.1); Sodium 140 mmol/L (135-145); Total Protein 8.2 g/dL (6.5-8.0); Triglycerides 215 mg/dL (<150)
[2024-06-13 04:21] LABS: HBc Num1 0.13 S/CO (0.00-0.79); HBsAGNum1 0.33 S/CO (0.00-0.99); Hepatitis B Core Antibody Nonreactive (Nonreactive); Hepatitis B Surface Antigen Negative (Negative); ~HepC Num1 0.17 S/CO (0.00-0.79); ~Hepatitis B Surface Antibody NONREACTIVE (Nonreactive); ~Hepatitis C Antibody Nonreactive (Nonreactive)
== END 2024-06-12 08:30 | disposition home or self-care (01) ==
LOC: HO.LAB 08:29
PROVIDERS: PCP Internal Medicine; Visit Provider Internal Medicine
DX: E78.00 Pure hypercholesterolemia, unspecified (principal); R79.89 Other specified abnormal findings of blood chemistry
CPT/HCPCS: 36415; 80053; 80061; 83036; 86704; 86706; 86803; 87340

== ENCOUNTER 2024-09-21 15:25 | Outpatient (AMB) | payer MEDICARE, MEDICAID, SELFPAY ==
[2024-09-21 15:26] VITALS: BP 186/110; PULSE 75; TEMP 36.2; O2SAT 98; BMI 30.5
--- NOTE | 2024-09-21 15:26 | MHC.PC.OV ---
Vital Signs 09/21/24 15:26 09/21/24 15:39 Height 5 ft 5 in Weight 183 lb 4 oz BMI 30.5 BP 186/110 H 184/106 H Blood Pressure Location Lt brachial Lt brachial Position Sitting Sitting Pulse 75 Pulse Source Pulse Oximeter Temp 97.1 F Temp Source Temporal Artery Scan Pulse Oximetry (%) 98 Oxygen Delivery Method Room Air Comment taken 5 min later Intake Visit Reasons: Cholesterol Manager Project Required: No Manager Project Name: Patient refused daughter inter Accompanied by: Daughter Allergies lisinopril Allergy (Intermediate, Verified 03/11/24 16:24) cough rosuvastatin Adverse Reaction (Intermediate, Unverified 09/21/24 16:20) muscle aches Tobacco use date assessed: 11/14/23 Dental Screening Dental Screen Date: 11/14/23 HPI Cholesterol HPI Details BP at home is good . stopped rosuvastatin since the last blood work The patient is a 64-year-old female presenting with hypertension, concerns regarding liver function, lipid levels, and blood glucose monitoring. She reports a history of elevated blood pressure readings, with the most recent reading being 164/91 mmHg. Previously, her blood pressure reached 180/?. She has experienced fluctuations in her lipid profile; her LDL cholesterol was previously 155 mg/dL and is now 96 mg/dL. Triglycerides were reduced from 287 mg/dL to 215 mg/dL. The patient had discontinued rosuvastatin due to side effects, particularly fatigue. As for glucose regulation, her hemoglobin A1c is currently at 5.7%, indicative of possible prediabetes. Previous laboratory results in May indicated normal kidney function and electrolyte balance. Notably, liver enzyme levels were elevated with figures of 35 and 48, suggesting hepatic impairment. She states that she's adapted her diet by reducing red meat consumption and opting for low-carbohydrate options. [facility] Medical History (Updated 03/11/24 @ 16:29 by Travis Ramos MD) Impaired fasting blood sugar Colon cancer screening Obesity (BMI 30-39.9) Varicose veins of both lower extremities Hypercholesterolemia Impaired glucose tolerance Failed back syndrome Hypertension Surgical History Hx of colonoscopy History of arthroscopy of left shoulder History of lumbar laminectomy Family History Father Pancreatic cancer Diabetes Mother Diabetes CAD (coronary artery disease) Borderline high blood pressure Daughter Thyroid cancer Sister CVA (cerebral vascular accident) Social History Housing: Apartment Alcohol intake: current Alcohol intake frequency: holidays/special occasions only Comment: once a week 3-4 beers Patient Tobacco Use Status: Former Tobacco user Tobacco use type: Cigarette Years Smoked: quit 1994 e-Cigarette/Vaping Use: Never Used Second Hand Smoke Exposure: No service: No Current occupational status: unemployed Cognitive needs: No Hearing needs: No Vision needs: No Questionnaire PHQ-9 Over the last 2 weeks, how often have you been bothered by any of the following problems? 1. Little interest or pleasure in doing things: not at all 2. Feeling down, depressed, or hopeless: not at all 3. Trouble falling or staying asleep, or sleeping too much: not at all 4. Feeling tired or having little energy: not at all 5. Poor appetite or overeating: not at all 6. Feeling bad about yourself - or that you are a failure or have let yourself or your family down: not at all 7. Trouble concentrating on things, such as reading the newspaper or watching television: not at all 8. Moving or speaking so slowly that other people could have noticed. Or the opposite - being so fidgety or restless that you have been moving around a lot more than usual: not at all 9. Thoughts that you would be better off or of hurting yourself in some way: not at all Total score: 0 Depression Screening Interpretation: Negative Depression Screening Done: Yes 25092 - PHQ-9 Billing: Yes Source: Developed by Drs. Michael Larson, Cheri Montaño, Rojelio Camacho and colleagues, with an educational aj from [employer]. Thrive Questionnaire Date Thrive assessed: 09/21/24 I am a: Patient What is your living situation today?: I have a steady place to live Within the past 12 months, did the food you bought not last and you didn't have the money to get more?: Never true Within the past 12 months, did you worry whether your food would run out before you got money to buy more?: Never true Do you have trouble paying for medicines?: No Do you have trouble getting transportation to medical appointments?: No Do you have trouble paying your heating and electricity bill?: No Do you have trouble taking care of your child, family member or friend?: No Do you have trouble with day-to-day activities such as bathing, preparing meals, shopping, managing finances, etc.?: No Are you currently unemployed and looking for a job?: No Are you interested in more education?: No Please select the resources that you would like help with: None Currently or been in a relationship where the following occur: No concerns reported THRIVE Score: 0 AUDIT C Alcohol Use Questionnaire (AUDIT-C) 1. How often do you have a drink containing alcohol?: Monthly or less 2. How many drinks containing alcohol do you have on a typical day when you are drinking?: 1 or 2 3. How often do you have six or more drinks on one occasion?: Never Total Score: 1 Score Reviewed/Action Taken: Yes CHANG-7 AMB Questionnaire CHANG-7 Date CHANG - 7 assessed: 09/21/24 Feeling nervous, anxious, or on edge: 0 = Not at all Not being able to stop or control worryin = Not at all Worrying too much about different things: 0 = Not at all Trouble relaxin = Not at all Being so restless that it is hard to sit still: 0 = Not at all Becoming easily annoyed or irritable: 0 = Not at all Feeling afraid as if something awful might happen: 0 = Not at all Total CHANG-7 score (0-4 normal; 5-9 mild; 10-14 moderate; 15-21 severe): 0 Source: Developed by Drs. Michael Larson, Cheri Montaño, Rojelio Camacho and colleagues, with an educational aj from [employer]. CHANG-7 Assessment Billing CHANG-7 Assessment Tool: CHANG-7 Assessment 33092 Physical exam (Primary Care) Vital Signs: Last Vital Signs Temp 97.1 F 09/21/24 15:26 Pulse 75 09/21/24 15:26 BP 184/106 H 09/21/24 15:39 Pulse Ox 98 09/21/24 15:26 Oxygen Delivery Method Room Air 09/21/24 15:26 BMI result Body Mass Index 30.5 Tobacco/Smoking Status: Tobacco use Status Tobacco use date assessed 11/14/23 09/21/24 15:27 Patient Tobacco Use Status Former Tobacco user 09/21/24 15:27 Tobacco use type Cigarette 09/21/24 15:27 e-Cigarette/Vaping Use Never Used 09/21/24 15:27 PHQ-9: PHQ-9 Score PHQ-9: Total score 0 09/21/24 16:01 Depression Screening Interpretation: Negative Thrive Assessment: Date of Thrive Assessment Date Thrive assessed 09/21/24 09/21/24 15:40 Currently or been in a relationship where the following occur: No concerns reported Results AMB Hemoglobin A1c AMB Hemoglobin A1c 5.7 % Last Edit by JÚNIOR Denny on 09/21/24 16:14 Coding Level of Care Code Est Pt Level 4 (85491) Complex EM visit Add On G2211 Diagnoses White coat syndrome with hypertension I10 Obesity (BMI 30-39.9) E66.9 Impaired glucose tolerance R73.02 Hypercholesterolemia E78.00 LFT elevation R79.89 Additional Codes CHANG-7 Assessment Billing - CHANG-7 Assessment Tool: CHANG-7 Assessment 17366 ([id number]) PHQ-9 - 97576 - PHQ-9 Billing: Yes ([id number]) Assessment & Plan Assessment & Plan (1) White coat syndrome with hypertension: Code(s): I10 - Essential (primary) hypertension Category: Medical Plan: Advised continue monitoring blood pressure has been but very good at home. No further medication (2) Obesity (BMI 30-39.9): Code(s): E66.9 - Obesity, unspecified Category: Medical Plan: Continue with diet and exercise (3) Impaired glucose tolerance: Code(s): R73.02 - Impaired glucose tolerance (oral) Category: Medical Plan: Decrease the amount of carbohydrate intake, pasta, bread, rice and potatoes are all sugar and that is aside from all the sweet stuff, remember that fruits are good but they are Sweet also. Hemoglobin A1c tested today 5 point (4) Hypercholesterolemia: Code(s): E78.00 - Pure hypercholesterolemia, unspecified Category: Medical Plan: Avoid fried foods, chicken skin, eggs, butter margarine, pastries and meat. Be it pork or beef they have a lot of cholesterol patient admits stopping cholesterol medication due to muscle aches will discontinue retest blood work. (5) LFT elevation: Code(s): R79.89 - Other specified abnormal findings of blood chemistry Category: Medical Plan: Advised to get the ultrasound done because of elevation of the liver function. Plan - Continue monitoring blood pressure and encourage lifestyle modifications. Consider alternate antihypertensive therapies if needed. - Request repeat liver function tests and an abdominal ultrasound to evaluate elevated liver enzymes further. - Schedule follow-up lipid profile testing in a few months. Discuss alternative lipid-lowering therapy options if dietary changes do not sustain improved lipid levels. - Monitor blood glucose levels and maintain lifestyle interventions aimed at reducing progression to diabetes. - Encourage ongoing dietary modifications, regular exercise, and weight management for overall cardiovascular health and risk reduction. - Advise on infection prevention given flu, COVID-19, RSV, and norovirus prevalence. - Recommend adequate hydration, regular physical activity, and heat application for managing musculoskeletal discomfort. Orders: Orders US abdomen complete Today R79.89 - Other specified abnormal findings of blood chemistry Free T4 (Free Thyroxine) 3 Months E78.00 - Pure hypercholesterolemia, unspecified Lipid Panel 3 Months E78.00 - Pure hypercholesterolemia, unspecified AMB Hemoglobin A1c Today R73.02 - Impaired glucose tolerance (oral) Complete Blood Count Auto Diff 3 Months E78.00 - Pure hypercholesterolemia, unspecified Comprehensive Met. Panel 3 Months E78.00 - Pure hypercholesterolemia, unspecified Hemoglobin A1c 3 Months E78.00 - Pure hypercholesterolemia, unspecified Thyroid Stimulating Hormone 3 Months E78.00 - Pure hypercholesterolemia, unspecified Vitamin B12 and Folate 3 Months E78.00 - Pure hypercholesterolemia, unspecified Medications: Discontinued rosuvastatin Discontinued Reason: Patient Completed Course 5 mg PO DAILY 30 tabs 3RF E78.00 - Pure hypercholesterolemia, unspecified
[2024-09-21 15:39] VITALS: BP 184/106
== END 2024-09-21 16:39 | disposition home or self-care (01) ==
PROVIDERS: PCP Internal Medicine; Visit Provider Internal Medicine
DX: I10 Essential (primary) hypertension (principal); E66.9 Obesity, unspecified; Z68.30 Body mass index [BMI] 30.0-30.9, adult; R73.02 Impaired glucose tolerance (oral); E78.00 Pure hypercholesterolemia, unspecified; R79.89 Other specified abnormal findings of blood chemistry

== ENCOUNTER → 2024-09-21 15:25 | Outpatient (BNVA) | payer MEDICARE, SELFPAY | PROVIDERS: PCP Internal Medicine; Visit Provider Internal Medicine | DX: I10 Essential (primary) hypertension (principal); E66.9 Obesity, unspecified; R73.02 Impaired glucose tolerance (oral); E78.00 Pure hypercholesterolemia, unspecified; R79.89 Other specified abnormal findings of blood chemistry; Z68.30 Body mass index [BMI] 30.0-30.9, adult | CPT/HCPCS: 83036; 96127; 99212 ==

== ENCOUNTER 2025-02-19 09:43 | Outpatient (REF) | payer MEDICARE, MEDICAID, SELFPAY ==
[2025-02-19 10:22] LABS: Hematocrit 41.4 % (37.0-47.0); Hemoglobin 13.7 g/dl (12.0-16.0); Mean Corpuscular HGB Conc 33.1 g/dl (31.0-35.0); Mean Corpuscular Volume 87.7 fL (80.0-98.0); Mean Platelet Volume 9.6 fL (9.4-12.3); Platelet Count 262 X10*3/uL (160-400); Red Blood Count 4.72 X10*6/uL (4.20-5.50); Red Cell Distribution Width 14.6 % (11.0-16.0); White Blood Count 13.9 X10*3/uL (4.8-10.8)
[2025-02-19 10:24] LABS: Estimated Average Glucose 117 mg/dL; Hemoglobin A1c % 5.7 % (<6.0); Total Hemoglobin (HGBA1C) 3630.1779 umol/L
[2025-02-19 11:04] LABS: SLIDE REVIEW MANUAL DIFF
[2025-02-19 11:06] LABS: Alanine Aminotransferase 30 U/L (0-31); Albumin Level 5.1 g/dL (3.5-5.0); Alkaline Phosphatase 69 U/L (39-117); Anion Gap 12 (12-20); Aspartate Amino Transferase 30 U/L (5-31); Bilirubin Total 0.5 mg/dL (0.0-1.0); Blood Urea Nitrogen 15 mg/dL (9-16); Calcium 9.5 mg/dL (8.4-10.2); Carbon Dioxide 26 mmol/L (22-29); Chloride 107 mmol/L (96-108); Cholesterol 254 mg/dL (<200); Estimated Glomerular Filt Rate > 60; Glucose Random 108 mg/dL (60-115); HDL Cholesterol 46 mg/dL (>40); LDL Cholesterol Calculated 155 mg/dL (<100); Potassium 4.4 mmol/L (3.3-5.1); Sodium 141 mmol/L (135-145); Total Protein 8.7 g/dL (6.5-8.0); Triglycerides 268 mg/dL (<150)
[2025-02-19 11:09] LABS: Atypical Lymph Absolute Manual 0.1 x10*3/uL; Atypical Lymphs Percent Manual 1 % (0-6); Band Neutrophils Percent 2 % (3-5); Eosinophils Absolute Manual 0.1 X10*3/uL (0.0-0.4); Eosinophils Percent Manual 1 % (0-4); Lymphocytes Absolute Manual 7.1 X10*3/uL (1.2-4.9); Lymphocytes Percent Manual 51 % (20-40); Monocytes Absolute Manual 0.4 X10*3/uL (0.1-1.2); Monocytes Percent Manual 3 % (2-11); Neutrophils Absolute Manual 6.1 X10*3/uL (2.0-8.3); Neutrophils Percent Manual 42 % (45-73)
[2025-02-19 11:11] LABS: Platelet Estimate NORMAL (NORMAL); Platelet Morphology Comment NORMAL; RBC Morphology NORMAL; Smudge Cells PRESENT
[2025-02-19 11:16] LABS: Free T4 (Free Thyroxine) 0.92 ng/dL (0.71-1.85); Thyroid Stimulating Hormone 1.91 uIU/mL (0.32-4.0)
[2025-02-19 11:34] LABS: Vitamin B12 391 pg/mL (200-900)
== END 2025-02-19 09:44 | disposition home or self-care (01) ==
LOC: HO.LAB 09:43
PROVIDERS: PCP Internal Medicine; Visit Provider Internal Medicine
DX: E78.00 Pure hypercholesterolemia, unspecified (principal); Z13.1 Encounter for screening for diabetes mellitus
CPT/HCPCS: 36415; 80053; 80061; 82607; 82746; 83036; 84439; 84443; 85007; 85025; 85027

== ENCOUNTER → 2025-03-29 14:38 | Outpatient (BNV) | payer MEDICARE, MEDICAID, SELFPAY | PROVIDERS: PCP Internal Medicine; Visit Provider Internal Medicine Medical Oncology | DX: R77.9 Abnormality of plasma protein, unspecified (principal) | CPT/HCPCS: 99204 ==

== ENCOUNTER 2025-04-18 16:11 | Outpatient (AMB) | payer MEDICARE, MEDICAID, SELFPAY ==
[2025-04-18 16:29] VITALS: BP 142/90; PULSE 79; TEMP 36.9; O2SAT 97; BMI 31.2
--- NOTE | 2025-04-18 16:29 | AM.OFFWIN_ITS ---
Intake Vital Signs 04/18/25 16:29 Height 5 ft 4 in Weight 182 lb BMI 31.2 BP 142/90 H Blood Pressure Location Lt brachial Position Sitting Pulse 79 Pulse Source Pulse Oximeter Temp 98.4 F Temp Source Oral Pulse Oximetry (%) 97 Oxygen Delivery Method Room Air Intake Visit Reasons: EP-lt abd pain Intake Note: pt presents with pain to left mid back radiating around to under left breast, chest feels a little tight with discomfort Patient Tobacco Use Status: Former Tobacco user Allergies lisinopril Allergy (Intermediate, Verified 04/18/25 16:30) cough rosuvastatin Adverse Reaction (Intermediate, Verified 04/18/25 16:30) muscle aches Do you need a note to return to daycare/school/sports/work: No HPI HPI Comments History of Present Illness Details History - The patient is a 65-year-old female pr esenting with musculoskeletal pain and a rash. - Musculoskeletal pain began after a alice ch outing on the , initially presenting as back pain and later moving to the anterior chest area under the left breast. - The pain worsens with deep breaths and is described as a tightening sensation. - [place], which may have contributed to the pain. - The patient has tried cold and hot com presses and julio at home without relief. - A rash was noted under the breast line by her sternum but it was not contributing to the pain. - She denies pain when moving her arms. - She denies numbness, tingling, chest p ain, neck pain, or SOB. Physical Exam General: cooperative, healthy appearing and comfortable, patient oriented x3 Head: Normal to inspection, normocephalic/atraumatic Effort & Inspection: Normal respiratory effort and able to speak in complete sentences. Cardiac: RRR, no M/R/G noted. Normal S1 and S2. Respiratory: Clear to auscultation bilaterally. No w/r/r noted. Reports tightness with deep breaths. Back/spine: No CVA tenderness bilaterally. Cervical, thoracic and lumbar spine normal to inspection. Cervical ROM normal, no midline spinous tenderness noted. Thoracic ROM normal, lumbar ROM normal. No step offs noted. TTP of the thoracic paraspinous or paravertebral muscles on the left. DTR are 2+ on the lower extremities noted. Ambulates with a steady gait. Extremities: FROM of the shoulders bilaterally. motor strength normal 5/5 bilaterally. Neuro: Sensation intact. Patient was informed and verbally consented to the use of an ambient scribe for clinic note documentation during this visit. [facility] Medical History (Updated 03/29/25 @ 17:59 by Lindsey De La O MD) Impaired fasting blood sugar Colon cancer screening Obesity (BMI 30-39.9) Varicose veins of both lower extremities Hypercholesterolemia Impaired glucose tolerance Failed back syndrome Hypertension Surgical History (Updated 03/29/25 @ 17:59 by Lindsey De La O MD) Hx of colonoscopy History of arthroscopy of left shoulder History of lumbar laminectomy Family History Father Pancreatic cancer Diabetes Mother Diabetes CAD (coronary artery disease) Borderline high blood pressure Daughter Thyroid cancer Sister CVA (cerebral vascular accident) Social History (Updated 03/29/25 @ 14:57 by Haleigh Sommer) Household Members: None Housing: Apartment Are you a primary residential caregiver to a significant other at home: Yes Do you presently have visiting nurse or other home services: No Alcohol intake: current Alcohol intake frequency: holidays/special occasions only Comment: once a week 3-4 beers Patient Tobacco Use Status: Former Tobacco user Tobacco use type: Cigarette Years Smoked: quit 1994 e-Cigarette/Vaping Use: Never Used Second Hand Smoke Exposure: No service: No Current occupational status: disabled Cognitive needs: No Hearing needs: No Vision needs: No Review of Systems Const All systems reviewed & are unremarkable except as noted in HPI and below Physical Exam Vital Signs: Last Vital Signs Temp 98.4 F 04/18/25 16:29 Pulse 79 04/18/25 16:29 BP 142/90 H 04/18/25 16:29 Pulse Ox 97 04/18/25 16:29 Oxygen Delivery Method Room Air 04/18/25 16:29 BMI result Body Mass Index 31.2 Assessment & Plan Assessment & Plan (1) Strain of thoracic region: Code(s): S29.019A - Strain of muscle and tendon of unspecified wall of thorax, initial encounter Qualifiers: Encounter type: initial encounter Qualified Code(s): S29.019A - Strain of muscle and tendon of unspecified wall of thorax, initial encounter Plan Most likely strain vs costochondritis plan - Plan includes the use of muscle relaxants, a short course of prednisone, and analgesics such as Tylenol or ibuprofen. - Patient advised to alternate between heat and ice application. - advice to avoid activities that exacerbate the pain. - follow up with PCP Medications: New cyclobenzaprine Take 1-2 tablets every 8 hours as needed for muscle spasms 5 mg PO Q8H PRN 20 tabs 0RF Muscle Spasm naproxen 500 mg PO Q12H PRN 20 tabs 0RF pain 7 days prednisone 40 mg (2 x 20 mg) PO DAILY 10 tabs 0RF 5 days Coding Level of Care Code Est Pt Level 4 (24407) Diagnoses Strain of thoracic region, initial encounter S29.019A Encounter type: initial encounter
== END 2025-04-18 16:56 | disposition home or self-care (01) ==
PROVIDERS: PCP Internal Medicine; Visit Provider Physician Assistant Medical
DX: S29.019A Strain of muscle and tendon of unspecified wall of thorax, initial encounter (principal)

== ENCOUNTER → 2025-04-18 16:11 | Outpatient (BNVA) | payer MEDICARE, MEDICAID, SELFPAY | PROVIDERS: PCP Internal Medicine; Visit Provider Physician Assistant Medical | DX: S29.019A Strain of muscle and tendon of unspecified wall of thorax, initial encounter (principal) | CPT/HCPCS: 99212 ==

== ENCOUNTER 2025-06-14 13:37 | Outpatient (AMB) | payer MEDICARE, MEDICAID, SELFPAY ==
[2025-06-14 13:45] VITALS: BP 156/100; PULSE 94; TEMP 36.3; O2SAT 98; BMI 30.9
--- NOTE | 2025-06-14 13:45 | A.OFFPC_ITS ---
Vital Signs 06/14/25 13:45 Height 5 ft 4 in Weight 180 lb BMI 30.9 BP 156/100 H Blood Pressure Location Lt brachial Position Sitting Pulse 94 Pulse Source Pulse Oximeter Temp 97.3 F Temp Source Temporal Artery Scan Pulse Oximetry (%) 98 Oxygen Delivery Method Room Air Intake Visit Reasons: annual exam - see comments Accompanied by: Daughter Allergies lisinopril Allergy (Intermediate, Verified 06/14/25 13:48) cough rosuvastatin Adverse Reaction (Intermediate, Verified 06/14/25 13:48) muscle aches Medication List - Last Reconciled 06/14/25 by Travis Ramos MD amlodipine 5 mg PO DAILY blood pressure monitor As directed diclofenac sodium 1% (Voltaren Arthritis Pain) 4 grams topical QID Tobacco use date assessed: 06/14/25 Fall risk assessment: No Falls in past year Last assessed Fall Risk: 06/14/25 Dental Screening Dental Screen Date: 06/14/25 Did you have a dental visit in the last 12 months?: No Did you have a dental problem in the last 6 months where you did not have access to dental care?: No Was dental information given to patient?: No HPI annual exam - see comments HPI Details blood pressure is good at home PFSH Medical History (Updated 06/14/25 @ 13:56 by Travis Ramos MD) Breast cancer screening by mammogram Impaired fasting blood sugar Colon cancer screening Obesity (BMI 30-39.9) Varicose veins of both lower extremities Hypercholesterolemia Impaired glucose tolerance Failed back syndrome Hypertension Surgical History Hx of colonoscopy History of arthroscopy of left shoulder History of lumbar laminectomy Family History Father Pancreatic cancer Diabetes Mother Diabetes CAD (coronary artery disease) Borderline high blood pressure Daughter Thyroid cancer Sister CVA (cerebral vascular accident) Social History (Updated 06/14/25 @ 14:08 by Travis Ramos MD) Household Members: None Housing: Apartment Are you a primary landcare facilitator to a significant other at home: Yes Do you presently have visiting nurse or other home services: No Alcohol intake: current Alcohol intake frequency: holidays/special occasions only Comment: once a week 3-4 beers , 1-2 beers now Patient Tobacco Use Status: Former Tobacco user Tobacco use type: Cigarette Years Smoked: quit 1994 e-Cigarette/Vaping Use: Never Used Second Hand Smoke Exposure: No service: No Current occupational status: disabled Cognitive needs: No Hearing needs: No Vision needs: No Questionnaire PHQ-9 Over the last 2 weeks, how often have you been bothered by any of the following problems? 1. Little interest or pleasure in doing things: not at all 2. Feeling down, depressed, or hopeless: not at all 3. Trouble falling or staying asleep, or sleeping too much: not at all 4. Feeling tired or having little energy: not at all 5. Poor appetite or overeating: not at all 6. Feeling bad about yourself - or that you are a failure or have let yourself or your family down: not at all 7. Trouble concentrating on things, such as reading the newspaper or watching television: not at all 8. Moving or speaking so slowly that other people could have noticed. Or the opposite - being so fidgety or restless that you have been moving around a lot more than usual: not at all 9. Thoughts that you would be better off or of hurting yourself in some way: not at all Total score: 0 Source: Developed by Drs. Michael Larson, Cheri Montaño, Rojelio Camacho and colleagues, with an educational aj from [employer]. Thrive Questionnaire Date Thrive assessed: 09/21/24 I am a: Patient What is your living situation today?: I have a steady place to live Within the past 12 months, did the food you bought not last and you didn't have the money to get more?: Never true Within the past 12 months, did you worry whether your food would run out before you got money to buy more?: Never true Do you have trouble paying for medicines?: No Do you have trouble getting transportation to medical appointments?: I choose not to answer this question Do you have trouble paying your heating and electricity bill?: No Do you have trouble taking care of your child, family member or friend?: No Do you have trouble with day-to-day activities such as bathing, preparing meals, shopping, managing finances, etc.?: No Are you currently unemployed and looking for a job?: No Are you interested in more education?: No Please select the resources that you would like help with: None Currently or been in a relationship where the following occur: No concerns reported THRIVE Score: 0 AUDIT C Alcohol Use Questionnaire (AUDIT-C) 1. How often do you have a drink containing alcohol?: Monthly or less 2. How many drinks containing alcohol do you have on a typical day when you are drinking?: 1 or 2 3. How often do you have six or more drinks on one occasion?: Never Total Score: 1 CHANG-7 AMB Questionnaire CHANG-7 Date CHANG - 7 assessed: 09/21/24 Feeling nervous, anxious, or on edge: 0 = Not at all Not being able to stop or control worryin = Not at all Worrying too much about different things: 0 = Not at all Trouble relaxin = Not at all Being so restless that it is hard to sit still: 0 = Not at all Becoming easily annoyed or irritable: 0 = Not at all Feeling afraid as if something awful might happen: 0 = Not at all Total CHANG-7 score (0-4 normal; 5-9 mild; 10-14 moderate; 15-21 severe): 0 Source: Developed by Drs. Michael Larson, Cheri Montaño, Rojelio Camacho and colleagues, with an educational aj from [employer]. Review of Systems Const Denies poor appetite and Denies weakness Eyes Denies no additional complaints ENT Reports Normal hearing present, Denies dizziness, Denies nasal congestion, Denies tinnitus and Denies sore throat Card Denies chest pain, Denies syncope, Denies rapid heart rate and Denies dyspnea Resp Denies cough and Denies dyspnea GI Denies change in stool character, Reports constipation, Denies diarrhea, Denies nausea and Denies vomiting Denies urinary frequency, Denies difficulty voiding and Denies dysuria Neuro Reports Normal hearing present, Denies confusion, Denies dizziness, Denies syncope and Denies weakness Psych Denies confusion Physical exam (Primary Care) Vital Signs: Last Vital Signs Temp 97.3 F 06/14/25 13:45 Pulse 94 06/14/25 13:45 BP 156/100 H 06/14/25 13:45 Pulse Ox 98 06/14/25 13:45 Oxygen Delivery Method Room Air 06/14/25 13:45 BMI result Body Mass Index 30.9 Tobacco/Smoking Status: Tobacco use Status Tobacco use date assessed 06/14/25 06/14/25 13:49 Patient Tobacco Use Status Former Tobacco user 06/14/25 13:49 Tobacco use type Cigarette 06/14/25 13:49 e-Cigarette/Vaping Use Never Used 06/14/25 13:49 PHQ-9: PHQ-9 Score PHQ-9: Total score 0 06/14/25 13:49 Thrive Assessment: Date of Thrive Assessment Date Thrive assessed 09/21/24 06/14/25 13:49 Currently or been in a relationship where the following occur: No concerns reported Const General: alert and awake; No confusion Orientation/consciousness: No confusion HENMT Head: Yes normocephalic Ears: external ears normal and TM's normal bilaterally Face and sinus: Yes normal facial exam Mouth: moist mucous membranes Throat: Yes tonsils normal Eyes Conjunctivae: conjunctivae normal Pupils: Equal, round and reactive pupils present and Pupil accommodation reflex normal Direct Ophthalmoscopy: normal light reflex Neck Neck: No lymphadenopathy Thyroid: Thyroid normal Chest Chest palpation & inspection: normal inspection of the chest Resp Effort & Inspection: normal respiratory effort and no audible wheezes Auscultation: clear to auscultation bilaterally, no crackles, no wheezes and lung sounds not diminished Cardio Rate: regular rate Rhythm: regular rhythm Peripheral pulses: radial pulses present and dorsalis pedis present GI Palpation (GI): no masses Auscultation: normal bowel sounds and normoactive bowel sounds Rectal Exam - Female: deferred Skin General skin exam: no rashes or lesions noted Rashes: no rashes Neuro General: deep tendon reflexes 2+ bilaterally and No confusion Cranial nerves: Yes Equal, round and reactive pupils present, Yes Midline tongue present, Yes Normal hearing present and Yes Ability to bilaterally elevate shoulders present Cognition (Neuro): normal cognition Gait exam (Neuro): Normal gait present Motor exam (neuro): 5/5 motor strength present throughout Deep tendon reflexes (DTR's): Right brachioradialis reflex intensity grade: 2+, Left brachioradialis reflex intensity grade: 2+, Right patellar reflex intensity grade: 2+ and Left patellar reflex intensity grade: 2+ Extrem General: No edema Coding Level of Care Code Est Pt Prev Care >65y([id number]) Diagnoses Annual physical exam Z00.00 Impaired glucose tolerance R73.02 Essential hypertension I10 Hypertension type: essential hypertension Hypercholesterolemia E78.00 Obesity (BMI 30-39.9) E66.9 LFT elevation R79.89 MGUS (monoclonal gammopathy of unknown significance) D47.2 Primary osteoarthritis involving multiple joints M15.9 Osteoarthritis location: multiple joints Osteoarthritis type: primary Generalized anxiety disorder F41.1 Breast cancer screening by mammogram Z12.31 Screening for osteoporosis Z13.820 Assessment & Plan Assessment & Plan (1) Annual physical exam: Code(s): Z00.00 - Encounter for general adult medical examination without abnormal findings Category: Medical Plan: Patient is advised to eat healthy, keep well hydrated, keep active and have adequate sleep. (2) Impaired glucose tolerance: Code(s): R73.02 - Impaired glucose tolerance (oral) Category: Medical Plan: Decrease the amount of carbohydrate intake, pasta, bread, rice and potatoes are all sugar and that is aside from all the sweet stuff, remember that fruits are good but they are Sweet also. (3) Hypertension: Code(s): I10 - Essential (primary) hypertension Category: Medical Qualifiers: Hypertension type: essential hypertension Qualified Code(s): I10 - Essential (primary) hypertension Plan: Continue with blood pressure medication. Decrease salt intake and exercise p resently on amlodipine 5 mg once a day (4) Hypercholesterolemia: Code(s): E78.00 - Pure hypercholesterolemia, unspecified Category: Medical Plan: Avoid fried foods, chicken skin, eggs, butter margarine, pastries and meat. Be it pork or beef they have a lot of cholesterol LDL goal of less than 130 and triglyceride of less than 150 (5) Obesity (BMI 30-39.9): Code(s): E66.9 - Obesity, unspecified Category: Medical Plan: Diet and exercise (6) LFT elevation: Code(s): R79.89 - Other specified abnormal findings of blood chemistry Category: Medical Plan: Discussed with the patient to have the ultrasound of the liver done. (7) MGUS (monoclonal gammopathy of unknown significance): Code(s): D47.2 - Monoclonal gammopathy Category: Medical Plan: Patient is being followed up by hematology oncology (8) Osteoarthritis: Comment: Left knee and right shoulder Code(s): M19.90 - Unspecified osteoarthritis, unspecified site Category: Medical Qualifiers: Osteoarthritis location: multiple joints Osteoarthritis type: primary Qualified Code(s): M15.9 - Polyosteoarthritis, unspecified Plan: Patient was referred to Rheumatology about concerns for on autoimmune problem (9) Generalized anxiety disorder: Code(s): F41.1 - Generalized anxiety disorder Category: Medical Plan: Stable (10) Breast cancer screening by mammogram: Code(s): Z12.31 - Encounter for screening mammogram for malignant neoplasm of breast Category: Medical (11) Screening for osteoporosis: Code(s): Z13.820 - Encounter for screening for osteoporosis Category: Medical Plan History of Present Illness The patient is a 65-year-old female presenting for an annual physical examination and management of chronic conditions. The patient has a history of hypertension, specifically white coat hypertension, which has been managed with amlodipine 5 mg daily. Her blood pressure readings at home have been within normal limits, although she experiences elevated readings in clinical settings. She has impaired glucose tolerance with a blood sugar level of 112 mg/dL and a hemoglobin A1c of 5.7%. Her renal function is normal, but liver function tests have shown elevated levels, prompting a request for a liver ultrasound. The patient has hypercholesterolemia with an LDL cholesterol level of 155 mg/dL and triglycerides at 268 mg/dL. She has been advised to follow a diet and exercise plan to achieve an LDL goal of less than 130 mg/dL and triglycerides less than 150 mg/dL. She has a history of anxiety disorder and post-laminectomy syndrome, which have been stable. The patient also has monoclonal gammopathy of undetermined significance (MGUS) and is under hematology oncology follow-up. In March, she visited an urgent care center for thoracic region strain, which was treated with muscle relaxants, anti-inflammatory medication, and prednisone. She was advised to follow up with rheumatology due to a high sedimentation rate. Her blood work showed mild leukocytosis, normal platelet count, and low normal potassium levels. B12, folic acid, and thyroid levels were within normal limits. Health Maintenance - Mammogram: Patient is due for a mammogram screening. - Colonoscopy: Last performed in March 2022, follow-up as per guidelines. - Bone density screening: Recommended for osteoporosis screening. - Liver ultrasound: Requested due to elevated liver function tests. - Cholesterol management: Advised diet and exercise to lower LDL and triglycerides. Social History - Alcohol use: Consumes alcohol about 1 to 2 times a week, reduced from previous consumption. - Smoking: No current tobacco use. - Diet: Prefers home-cooked meals, avoids fast foods and fried foods, consumes egg whites instead of yolks. - Family history: Family history of heart problems and stroke. Review of Systems - Cardiovascular: Denies chest pain, palpitations, or syncope. - Respiratory: Denies dyspnea, cough, or wheezing. - Gastrointestinal: Denies nausea, vomiting, diarrhea, or abdominal pain. - Neurological: Denies headaches, dizziness, or balance issues. - Musculoskeletal: Reports thoracic region strain, denies joint pain or swelling. Physical Exam General: Cooperative, healthy appearing, comfortable, no acute distress and well developed Orientation: Patient oriented x3 Limitations: No limitations Head: Normal to inspection Ears: Hearing grossly normal bilaterally Nose: Normal external nose present Face and sinus: Normal facial exam Eyes: Appearance normal, both eyes and all related structures Neck: Normal visual inspection and Yes full ROM Respiratory: Normal respiratory effort and able to speak in complete sentences. Clear to auscultation bilaterally Cardiovascular: Regular rate and rhythm. Normal S1 and S2 GI: Normal to inspection. Soft to palpation and nontender Skin: No rashes or lesions noted Neuro: Patient oriented x3 Extremities: Normal to inspection Results - Labs: Mild leukocytosis, low normal potassium, elevated liver function tests, LDL cholesterol 155 mg/dL, triglycerides 268 mg/dL, blood sugar 112 mg/dL, hemoglobin A1c 5.7%. - Tests: Liver ultrasound requested due to elevated liver function tests. Plan Patient was informed and verbally consented to the use of an ambient scribe for clinic note documentation during this visit. 1. Hypertension (White Coat Hypertension) The patient is currently on amlodipine 5 mg daily for hypertension management. Home blood pressure monitoring shows normal readings, but elevated readings are noted in clinical settings, consistent with white coat hypertension. 2. Impaired Glucose Tolerance The patient's blood sugar level is 112 mg/dL with a hemoglobin A1c of 5.7%, indicating impaired glucose tolerance. Renal function is normal, and dietary modifications are recommended to manage glucose levels. 3. Hypercholesterolemia The patient has elevated LDL cholesterol at 155 mg/dL and triglycerides at 268 mg/dL. A diet and exercise plan is advised to achieve an LDL goal of less than 130 mg/dL and triglycerides less than 150 mg/dL. 4. Anxiety Disorder The patient has a history of anxiety disorder, which is currently stable. 5. Post-Laminectomy Syndrome The patient has a history of post-laminectomy syndrome, which remains stable. 6. Monoclonal Gammopathy Of Undetermined Significance (Mgus) The patient is under hematology oncology follow-up for MGUS. 7. Thoracic Region Strain The patient experienced a thoracic region strain in March, treated with muscle relaxants, anti-inflammatory medication, and prednisone. Follow-up with rheumatology was advised due to a high sedimentation rate. 8. Elevated Liver Function Tests Liver function tests are elevated, and a liver ultrasound has been requested to investigate further. 9. Mild Leukocytosis Blood work showed mild leukocytosis, with normal platelet count and low normal potassium levels. 10. Low Normal Potassium Potassium levels are at the low end of normal, with no current symptoms of hypokalemia. Discussion Notes During the visit, we discussed the management of hypertension with amlodipine and the importance of home blood pressure monitoring to differentiate white coat hypertension from persistent hypertension. We reviewed the patient's cholesterol levels and emphasized dietary and exercise modifications to lower LDL and triglycerides. The need for a liver ultrasound was explained due to elevated liver function tests, and follow-up with rheumatology was advised for the thoracic strain and high sedimentation rate. Patient Instructions - Continue taking amlodipine 5 mg daily for blood pressure management. - Monitor blood pressure at home regularly and report any significant changes. - Follow a diet and exercise plan to lower cholesterol levels. - Schedule a liver ultrasound as requested. - Follow up with rheumatology as advised. Orders: Orders XR DEXA axial skeleton Today M81.0 - Age-related osteoporosis without current pathological fracture, Z13.820 - Encounter for screening for osteoporosis Comprehensive Met. Panel 3 Months E78.00 - Pure hypercholesterolemia, unspecified MM tomosynthesis screening BI Today Z12.31 - Encounter for screening mammogram for malignant neoplasm of breast US abdomen complete Today R79.89 - Other specified abnormal findings of blood chemistry Lipid Panel 3 Months E78.00 - Pure hypercholesterolemia, unspecified Hemoglobin A1c 3 Months E78.00 - Pure hypercholesterolemia, unspecified Medications: New pravastatin 10 mg PO BEDTIME 30 tabs 3RF E78.00 - Pure hypercholesterolemia, unspecified
== END 2025-06-14 14:31 | disposition home or self-care (01) ==
LOC: HO.HMCH 13:39
PROVIDERS: PCP Internal Medicine; Visit Provider Internal Medicine
DX: Z00.00 Encounter for general adult medical examination without abnormal findings (principal); R73.02 Impaired glucose tolerance (oral); E66.9 Obesity, unspecified; Z68.30 Body mass index [BMI] 30.0-30.9, adult; I10 Essential (primary) hypertension; E78.00 Pure hypercholesterolemia, unspecified; R79.89 Other specified abnormal findings of blood chemistry; D47.2 Monoclonal gammopathy; M15.9 Polyosteoarthritis, unspecified; F41.1 Generalized anxiety disorder; Z12.31 Encounter for screening mammogram for malignant neoplasm of breast; Z13.820 Encounter for screening for osteoporosis

== ENCOUNTER → 2025-06-14 13:37 | Outpatient (BNVA) | payer MEDICARE, MEDICAID, SELFPAY | PROVIDERS: PCP Internal Medicine; Visit Provider Internal Medicine | DX: Z00.00 Encounter for general adult medical examination without abnormal findings (principal); R73.02 Impaired glucose tolerance (oral); I10 Essential (primary) hypertension; E78.00 Pure hypercholesterolemia, unspecified; R79.89 Other specified abnormal findings of blood chemistry; D47.2 Monoclonal gammopathy; M15.9 Polyosteoarthritis, unspecified; F41.1 Generalized anxiety disorder; M96.1 Postlaminectomy syndrome, not elsewhere classified; D72.829 Elevated white blood cell count, unspecified; E66.9 Obesity, unspecified; M81.0 Age-related osteoporosis without current pathological fracture; Z68.30 Body mass index [BMI] 30.0-30.9, adult | CPT/HCPCS: 96127; 99397 ==

== ENCOUNTER 2025-07-13 08:31 | Outpatient (REF) | payer MEDICARE, MEDICAID, SELFPAY ==
--- NOTE | ~2025-07-13 | US_ITS ---
CLINICAL HISTORY: R79.89 - Other specified abnormal findings of blood chemistry US abdomen complete Comparison: None provided Findings: The pancreas demonstrates ill-defined hypoechogenicity in the pancreatic body and tail, the pancreatic body and tail appear bulkier than the head. The visualized aorta and inferior vena cava are normal caliber. The liver is normal in size, right lobe length is 14.4 cm. Normal in echogenicity, no discrete lesion is visualized in the imaged liver. No intrahepatic bile duct dilatation. The common duct is 4 mm in diameter. The gallbladder is normal. Negative sonographic Escoto sign. The main portal vein is patent with antegrade flow. The right kidney is normal, 12.4 cm in length. The left kidney is normal, 11.8 cm in length. The spleen is normal, 8.2 cm in length. Small soft tissue nodule isoechoic to the spleen between the spleen and left kidney, probably accessory spleen, 1.5 x 1.0 x 1.2 cm. No free fluid in the abdomen. Impression: Mildly bulky pancreatic body and tail with ill-defined hypoechogenicity, indeterminate, pancreatic mass can not be excluded, recommend pancreatic MRI or CT without and with IV contrast for further evaluation. This document has been electronically signed by: Marie Webb MD on 07/13/2025 15:21:59
== END 2025-07-13 08:32 | disposition home or self-care (01) ==
LOC: HO.US 08:31
PROVIDERS: PCP Internal Medicine; Visit Provider Internal Medicine
DX: R79.89 Other specified abnormal findings of blood chemistry (principal)
CPT/HCPCS: 76700

== ENCOUNTER → 2025-07-13 08:33 | Outpatient (BNV) | payer MEDICARE, MEDICAID, SELFPAY | PROVIDERS: PCP Internal Medicine; Visit Provider Radiology Diagnostic Radiology | DX: R79.89 Other specified abnormal findings of blood chemistry (principal) | CPT/HCPCS: 76700 ==